=== PATIENT | male | born 1950 | race Hispanic/Latino ===

== ENCOUNTER 2018-06-12 07:39 | Outpatient (CLI) | payer MEDICARE, OTHER ==
--- NOTE | 2018-06-12 08:56 | CT ---
FExam: Abdomen CT with and without contrast HISTORY: Possible pancreatic mass COMPARISON: None Correlation: Abdomen ultrasound 05/27/2018 TECHNIQUE: Abdomen and pelvic CT is performed with and without contrast following urogram protocol. C oronal reformatted images are submitted for interpretation FINDINGS: Lung bases: Clear Liver: Appropriate enhancement. No enhancing masses. Spleen: Appropriate enhancement Pancreas: 8 mm hypodensity in the proximal pancreatic body. Hypodensity persists on the delayed image s and may represent a small cystic lesion versus focal dilatation of the ductal system. No inflammato ry change. Adrenal glands: Symmetric enhancement Lymph nodes: No gastrohepatic, retrocrural or periportal lymphadenopathy Portal vein: Patent Gallbladder: Unremarkable Kidneys: Symmetric enhancement. No obstructive uropathy. There is a nonobstructing 5 mm calculus in t he left pelvis. 1.5 cm cyst in the left renal cortex. Mesentery: No mass, nephropathy, free air or free fluid Alimentary canal: Limited evaluation due to lack of oral contrast administration. No evidence of lillian l obstruction. The ileocecal junction is normal. Normal caliber appendix. Scattered fecal material in a nondistended/nondilated colon. No lytic or blastic lesions in the osseous structures IMPRESSION: 1. Hypodensity in the proximal pancreatic body, too small to further characterize. Cystic lesion linda madelin a focal dilatation of the ductal system are differential considerations. Follow-up CT in one year is recommended. 2. Nonobstructing calculus in the left renal pelvis. Left renal cyst.
[2018-06-12] MEDS ORDERED: Iopamidol 370 76% 100 ML VIAL ONE (09:00)
== END 2018-06-12 07:40 | disposition home or self-care (01) ==
LOC: SCSCT 07:39
PROVIDERS: ATTEND Internal Medicine
DX: K86.89 Other specified diseases of pancreas (principal); N20.0 Calculus of kidney; N28.1 Cyst of kidney, acquired; R93.3 Abnormal findings on diagnostic imaging of other parts of digestive tract
CPT/HCPCS: 74170; Q9967